=== PATIENT | male | born 1950 | race Caucasian/White ===

== ENCOUNTER 2022-07-28 09:13 | Emergency (ER) | payer MEDICARE, BC, SELFPAY ==
[2022-07-28 09:25] VITALS: BP 193/99; PULSE 120; RESP 20; TEMP 36.5; O2SAT 98; BMI 24.6
[2022-07-28 10:35] VITALS: BP 174/96; PULSE 86; RESP 18; O2SAT 96
[2022-07-28 10:41] LABS: Appearance Urine Clear (Clear); Bilirubin Urine Negative (Negative); Blood Urine 2+ (Negative); Color Urine Yellow (Yellow); Glucose Urine Negative (Negative); Ketones Urine Negative (Negative); Leukocyte Esterase Urine Negative (Negative); Nitrite Urine Negative (Negative); Protein Urine 1+ (Negative); Specific Gravity Urine 1.025 (1.000-1.030); Urobilinogen Urine 0.2 (0.2-1.0)
[2022-07-28] MEDS: TAMSULOSIN HCL 0.4 MG CAPSULE PO (10:45)
[2022-07-28 10:47] LABS: RBC Urine 25-50 (0-2); Squamous Epithelial Cell Urine Few (None-Few)
--- NOTE | 2022-07-28 11:13 | ED.NURSE ---
was instructed with catheter care. was given a leg bag and placed on his right leg. will get rx for flomax and start daily; aware that dose was given today.
--- NOTE | 2022-07-28 11:32 | ED_ITS ---
HPI - Male Genitourinary General Date Seen: 07/28/22 Chief complaint: Urogenital Problems, Male Stated complaint: unable to urinate Time Seen by Provider: 07/28/22 09:16 Source: patient Mode of arrival: ambulatory Limitations: no limitations History of Present Illness HPI Narrative: Patient is a 71-year-old gentleman who presents here for evaluation of not being able to urinate since approximately 3:00 a.m.. He usually gets up he says 4-5 times overnight. Never before had to have a catheter, denies any dysuria frequency fevers chills abdominal pain associated with this did not take any other medications, does not really have a primary care physician as on no chronic medications. Bladder scan is done any has for over 400 mL in his bladder. Related Data Previous Rx's Medication Instructions Recorded tamsulosin 0.4 mg capsule (Flomax) 0.4 mg PO DAILY #30 caps 07/28/22 Allergies Allergy/AdvReac Type Severity Reaction Status Date / Time No Known Drug Allergies Allergy Verified 07/28/22 09:25 Review of Systems Status of ROS: Reports: 10 or more systems reviewed and unremarkable except as noted in History and below [facility] Social History Smoking Status: Former smoker Do you use any of these nicotine containing products: None Second hand tobacco smoke exposure: No How often do you have a drink containing alcohol: 2-3 times a week How many standard drinks containing alcohol do you have on a typical day: 1 or 2 How often do you have six or more drinks on one occasion: Never AUDIT-C Alcohol total score: 3 Non-prescribed substance use: denies use service: No Exam Narrative: Exam Narrative: Patient is a very nice gentleman in no apparent distress seen in room 7, there is no palpable tenderness noted over his bladder, or abdomen. There is no tenderness noted over his back, bowel sounds are normal, greater than 400 mL in his bladder. Const: Vital Signs, click to edit/add: Vital Signs - 24 hr 07/28/22 09:25 07/28/22 10:35 Temperature 97.7 F Pulse Rate [Pulse Oximeter] 120 H 86 Respiratory Rate 20 18 Blood Pressure [Le ft Upper Arm] 193/99 H 174/96 H Pulse Oximetry 98 96 Oxygen Delivery Me thod Room Air Room Air Documenting provider has reviewed patient's vital signs: yes Course Vital Signs Vital signs: Initial Vital Signs Temperature 97.7 F 07/28/22 09:25 Temperature Source Temporal Artery Scan 07/28/22 09:25 Pulse Rate 120 H 07/28/22 09:25 Pulse Rhythm Regular 07/28/22 09:25 Respiratory Rate 20 07/28/22 09:25 Blood Pressure 193/99 H 07/28/22 09:25 Blood Pressure Mean 130 H 07/28/22 09:25 Blood Pressure Position Standing 07/28/22 09:25 Pulse Oximetry 98 07/28/22 09:25 Oxygen Delivery Method Room Air 07/28/22 09:25 Vital Signs Temperature 97.7 F 07/28/22 09:25 Pulse Rate 120 H 07/28/22 09:25 Respiratory Rate 20 07/28/22 09:25 Blood Pressure 193/99 H 07/28/22 09:25 Pulse Oximetry 98 07/28/22 09:25 Oxygen Delivery Method Room Air 07/28/22 09:25 Temperature 97.7 F 07/28/22 09:25 Pulse Rate 86 07/28/22 10:35 Respiratory Rate 18 07/28/22 10:35 Blood Pressure 174/96 H 07/28/22 10:35 Pulse Oximetry 96 07/28/22 10:35 Oxygen Delivery Method Room Air 07/28/22 10:35 MDM - Male Genitourinary MDM Narrative Medical decision making narrative: Patient is urinary retention likely from BPH I have a low suspicion this is secondary to prostatitis or some other cause. It can be from an enlarged prostate which can be caused generally by BPH but also could be caused by malignancy and should be seen in follow-up. Medical Records Attestation: I reviewed the patient's medical records. Lab Data Attestation: I reviewed the patient's lab results. Labs: Lab Results 07/28/22 Range/Units 10:30 Urine Color Yellow (Yellow) Urine Appearance Clear (Clear) Urine pH 7.0 (5.0-8.5) Ur Specific [place] 1.025 (1.000-1.030) Urine Protein 1+ A (Negative) Urine Glucose (UA) Negative (Negative) Urine Ketones Negative (Negative) Urine Blood 2+ A (Negative) Urine Nitrite Negative (Negative) Urine Bilirubin Negative (Negative) Urine Urobilinogen 0.2 (0.2-1.0) Ur Leukocyte Esterase Negative (Negative) Urine RBC 25-50 A (0-2) Urine WBC 2-5 (0-5) Ur Squamous Epith Cells Few (None-Few) Urine Bacteria None (None) Discharge Plan Discharge Clinical Impression: Elevated blood pressure reading, Acute retention of urine Patient Disposition: Home, Self-Care Condition: Stable Instructions: Urinary Retention in Men (ED), [place] Catheter Placement and Care (ED) Additional Instructions: Home rest I recommend follow-up in mid week with either 1 of the providers locally or Urology to get your catheter removed. Likely causes is your large prostate which causes the urinary retention, other issues need to be checked to make sure this isn't something more sinister such as cancer. Take the medication as directed this will help shrink your prostate over time and allow you not to get up as much overnight to pee . The other benefit of it is is tends to help the blood pressure which was elevated here. This is partially probably due to the fact that you had a lot a urine, but I would suspect that you do have some high blood pressure. Another good reason to follow-up with a provider. Prescriptions: New tamsulosin [Flomax] 0.4 mg capsule 0.4 mg PO DAILY Qty: 30 2RF Follow Up/Referrals: Julio Ocampo MD [Staff Physician] - Jose Manuel Machado MD [Staff Physician] - Provider,Not a Local [Primary Care Provider] - Stand Alone Forms: [employer] Info Instructions
== END 2022-07-28 11:10 | disposition home or self-care (01) ==
PROVIDERS: Emergency Provider Family Medicine
DX: R33.9 Retention of urine, unspecified (principal); R03.0 Elevated blood-pressure reading, without diagnosis of hypertension
CPT/HCPCS: 51798; 81001; 99283; 99284; A9270

== ENCOUNTER 2023-07-28 08:57 | Outpatient (CLI) | payer MEDICARE, BC, SELFPAY ==
--- OUTSIDE RECORDS SUMMARY | 2023-07-28 09:01 | XMS_ITS ---
Author Name Unknown Organization [facility] Address [address] [place] [address] Care Team Providers Care Toter Name Role Phone Unavailable Unavailable Unavailable Surgery Details Not on file Complications Check Surgery Details section. Procedure Estimated Blood Loss Check Surgery Details section. Procedure Findings Check Surgery Details section. Procedure Specimens Taken Check Surgery Details section.
--- OUTSIDE RECORDS SUMMARY | 2023-07-28 09:01 | XMS_ITS | Referral Summary ---
Author Name Unknown Organization [facility] Address [address] [place] [address] Care Team Providers Care Drupal Php Developer Name Role Phone Unavailable Primary Care Provider Unavailabl e Source Comments Patient records contain information from all sites at [facility]. For routine questions regarding patient records, call [phone] during business hours, M-F 8:00 AM - 5:00 PM Central Time. Record requests for emergency care only can be directed to [phone] at any time.[facility] Allergies No known active allergies Immunizations Name Administration Dates Next Due Td, (Adult) Unspecified 10/25/1994 Social History Tobacco Use Types Packs/Day Years Used Date Smoking Tobacco: Never Assessed Humiliation, Afraid, Rape, and Kick questionnair e Answer Date Recorded Within the last year, have y ou been afraid of your partner or ex-partner? No 08/09/2022 Within the last year, have y ou been humiliated or emotionally abused in other ways by your partner or ex-partner? No Within the last year, have y ou been kicked, hit, slapped, or otherwise physically hurt by your partner or ex-partner? No 08/09/2022 Within the last year, have y ou been raped or forced to have any kind of sexual activity by your partner or ex-partner? No 08/09/2022 Overall Financial Resource Strain (CARDIA) Answe r Date Recorded How hard is it for you to pa y for the very basics like food, housing, medical care, and heating? Not hard at all 08/09/2022 Exercise Vital Sign Answer Date Recorde d On average, how many days pe r week do you engage in moderate to strenuous exercise (like a brisk walk)? 7 days 08/09/2022 On average, how many minutes do you engage in exercise at this level? 30 min 08/09/2022 Hunger Vital Sign Answer Date Recorded Within the past 12 months, y ou worried that your food would run out before you got the money to buy more. Never true 08/10/19 Within the past 12 months, t he food you bought just didn't last and you didn't have money to get more. Never true 08/09/2022 PRAPARE - Transportation Answer Date Re corded In the past 12 months, has l ack of transportation kept you from medical appointments or from getting medications? No 07/16 In the past 12 months, has l ack of transportation kept you from meetings, work, or from getting things needed for daily living? No 08/09/2022 Nutrition Answer Date Recorded Nutrition: EVOO Fat Source Unknown 08/09 On average, how many serving s of fruits and vegetables do you eat per day (serving size is equal to 1 cup or approximately the size of a tennis ball)? 0-2 08/09/2022 Dental Answer Date Recorded Dental: Regular Dentist No 08/10/19 Employment Answer Date Recorded Employment status Employed and actively working without restrictions 08/09/2022 Housing Stability Answer Date Recorded What is your living situation today? I have a [facility] place to live 08/09/2022 Sex and Gender Information Value Date Recorded Sex Assigned at Not on file Gender Identity Not on file Sexual Orientation Not on file Plan of Treatment Not on file PEGG[place] Draper [id number]
--- OUTSIDE RECORDS SUMMARY | 2023-07-28 09:01 | XMS_ITS | Clinical Summary ---
Author Name Unknown Organization [facility] Address [place], [place] [address] Care Team Providers Care Clay Carman Name Role Phone Unknown, Doctor Primary Care Provider Unavailabl e Allergies No known active allergies Medications No known medications Immunizations Name Administration Dates Next Due COVID-19 vaccine (Aguilar-J&J) BENITO CASH COVID-19 vaccine ([employer] 30mcg/0.3mL) BENITO Day 02/26/2021 Social History Tobacco Use Types Packs/Day Years Used Date Smoking Tobacco: Never Smokeless Tobacco: Never Tobacco Cessation:Counseling Given: Yes Alcohol Use Standard Drinks/Week Comments Yes 0 (1 standard drink = 0.6 oz pur e alcohol) Social Connections Answer Date Recorded Frequency of Communication with Friends and Fami ly Not on file 03/17/2021 Financial Resource Strain Answer Date R ecorded Difficulty of Paying Living Expenses Not on file 03/17/2021 Difficulty of Paying Living Expenses Not on file 03/17/2021 Sex and Gender Information Value Date Recorded Sex Assigned at Not on file Gender Identity Not on file Sexual Orientation Not on file Obstetrics History Plan of Treatment Health Maintenance Due Date Last Done Comments Tdap 1960 Depression screening for age 12+ 1961 BMI (ht and wt on same day) for age 18+ 12/01/1967 Hepatitis C screening for age 18-79 12/01/1967 Tetanus booster 1969 Colonoscopy through age 75 1994 Lipids for age 45-75 1994 Zoster (shingles) series for age 50+ (1 of 2) 12/01/1999 Medicare Wellness for age 65+ 2014 Pneumococcal series for age 65+ (1 of 1 - PCV) 2014 COVID-19 vaccine series ( season) 2022 02/26/2021, 05/27/2020 Influenza for age 65+ 11/16/2023 Care Teams Clay Carman Relationship Specialty Start Date End Date Unknown, Doctor . PCP - General Emergency Medicine 02/02/14
--- OUTSIDE RECORDS SUMMARY | 2023-07-28 09:01 | XMS_ITS | Clinical Summary ---
Author Name Unknown Organization [facility] Address [address] [place] [address] Care Team Providers Care Slurry Blender Name Role Phone Unavailable Primary Care Provider Unavailabl e Source Comments Patient records contain information from all sites at [facility]. For routine questions regarding patient records, call [phone] during business hours, M-F 8:00 AM - 5:00 PM Central Time. Record requests for emergency care only can be directed to [phone] at any time.[facility] Allergies No known active allergies Immunizations Name [...] your living situation today? I have a [facility] place to live 08/09/2022 Sex and Gender Information Value Date Recorded Sex Assigned at Not on file Gender Identity Not on file Sexual Orientation Not on file Plan of Treatment Health Maintenance Due Date Last Done Comments CT Colonography 1949 Cologuard 1949 Colonoscopy 1949 Colorectal Cancer Screening 1949 FIT 1949 Fasting Glucose for Diabetes Screening 1949 Hepatitis C Screening 1949 Zoster Vaccines (1 of 2) 12/01/1999 Pneumococcal vaccine (65+ ye ars) (1 of 1 - PCV) 2014 COVID-19 Vaccine (3 - 2022- season) 2022, 05/27/2020 Influenza Vaccine (#1) 2022 Depression Screening (Annual PHQ-2) 03/17/2023 Fall Risk Screen (Annual) 03/17/2023 DTaP,Tdap,and Td Vaccines (2 - Td or Tdap) 09/09/2032 09/09/2022, 10/25/1994
== END 2023-07-28 08:58 | disposition home or self-care (01) ==
PROVIDERS: PCP Family Medicine; Visit Provider Family Medicine
DX: R97.20 Elevated prostate specific antigen [PSA] (principal); I10 Essential (primary) hypertension; Z13.220 Encounter for screening for lipoid disorders; Z12.5 Encounter for screening for malignant neoplasm of prostate
CPT/HCPCS: 80048; 80061; 84153

== ENCOUNTER 2023-08-26 07:54 | Outpatient (CLI) | payer MEDICARE, BC, SELFPAY ==
--- OUTSIDE RECORDS SUMMARY | 2023-08-26 08:00 | XMS_ITS | Clinical Summary ---
Author Organization [facility] Address [place], [place] [address] Care Team Providers Care Harbor Engineer Name Role Phone Unknown, Doctor Primary Care Provider Unavailabl e Allergies No known active allergies Medications No known medications Immunizations Name Administration Dates Next Due COVID-19 vaccine (Aguilar-J&J) BENITO CASH COVID-19 vaccine ([employer] 30mcg/0.3mL) BENITO Day 02/26/2021 Social History Tobacco [...] 1 - PCV) 2014 COVID-19 vaccine series (3 2022- season) 2022 02/26/2021, 05/27/2020 Influenza for age 65+ 11/16/2023 Care Teams Harbor Engineer Relationship Specialty Start Date End Date Unknown, Doctor . PCP - General Emergency Medicine 02/02/14
--- OUTSIDE RECORDS SUMMARY | 2023-08-26 08:00 | XMS_ITS ---
Author Organization [facility] Address [address] [place] [address] Care Team Providers Care Architectural Representative Name Role Phone Unavailable Unavailable Unavailable Surgery Details Not on file Complications Check Surgery Details section. Procedure Estimated Blood Loss Check Surgery Details section. Procedure Findings Check Surgery Details section. Procedure Specimens Taken Check Surgery Details section.
--- OUTSIDE RECORDS SUMMARY | 2023-08-26 08:00 | XMS_ITS | Clinical Summary ---
Author Organization [facility] Address [address] [place] [address] Care Team Providers Care Finishing Range Operator Name Role Phone Unavailable Primary Care Provider Unavailabl e Source Comments Patient records contain information from all sites at [facility]. For routine questions regarding patient records, call [phone] during business hours, M-F 8:00 AM - 5:00 PM Central Time. Record requests for emergency care only can be directed to [phone] at any time.[facility] Allergies No known active allergies Immunizations Name [...] your living situation today? I have a [facility] place to live 08/09/2022 Sex and [...]
--- OUTSIDE RECORDS SUMMARY | 2023-08-26 08:00 | XMS_ITS | Referral Summary ---
Author Organization [facility] Address [address] [place] [address] Care Team Providers Care Manager Unix Name Role Phone Unavailable Primary Care Provider Unavailabl e Source Comments Patient records contain information from all sites at [facility]. For routine questions regarding patient records, call [phone] during business hours, M-F 8:00 AM - 5:00 PM Central Time. Record requests for emergency care only can be directed to [phone] at any time.[facility] Allergies No known active allergies Immunizations Name [...] your living situation today? I have a [facility] place to live 08/09/2022 Sex and Gender Information Value Date Recorded Sex Assigned at Not on file Gender Identity Not on file Sexual Orientation Not on file Plan of Treatment Not on file
--- NOTE | 2023-08-26 09:27 | W.ANESCHARGE ---
Anesthesia Charges Start Date/Time Anesthesia Start Date: 08/26/23 Anesthesia Start Time: 08:47 Stop Date/Time Anesthesia Stop Date: 08/26/23 Anesthesia Stop Time: 09:27 Summary Extremes of Age - Over 70 or under 1: MDA
--- NOTE | 2023-08-26 09:31 | P.ANES_ITS ---
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
== END 2023-08-26 07:55 | disposition home or self-care (01) ==
LOC: OP CLINIC 07:56
PROVIDERS: PCP Family Medicine; Visit Provider Surgery
DX: Z12.11 Encounter for screening for malignant neoplasm of colon (principal); K63.5 Polyp of colon; K57.30 Diverticulosis of large intestine without perforation or abscess without bleeding; R19.5 Other fecal abnormalities; N40.0 Benign prostatic hyperplasia without lower urinary tract symptoms
CPT/HCPCS: 00811; 45385; 88305; 99100; J2704

== ENCOUNTER 2024-05-11 14:42 | Outpatient (CLI) | payer MEDICARE, BC, SELFPAY | END 2024-05-11 14:43 | disposition home or self-care (01) | PROVIDERS: PCP Family Medicine; Visit Provider Family Medicine | DX: I10 Essential (primary) hypertension (principal) | CPT/HCPCS: 80048; 85025 ==

== ENCOUNTER 2024-06-03 07:55 | Day surgery (SDC) | payer MEDICARE, BC, SELFPAY ==
[2024-06-03] VITALS (13 sets, daily range): BP systolic 140–191; BP diastolic 71–99; PULSE 95–110; RESP 10–18; TEMP 36.5–36.7; O2SAT 95–100; BMI 24.5
[2024-06-03] MEDS: LACTATED RINGERS 1000 ML 1,000 ML 100 ML IV (08:00)
[2024-06-03] MEDS: SODIUM CHLORIDE 0.9 % (FLUSH) 10 ML SYRINGE IVF (08:23)
--- NOTE | 2024-06-03 09:06 | W.PM.H&PU ---
History & Physical Update History & Physical Update H&P Reviewed and patient assessed: No changes noted
[2024-06-03] MEDS: CEFAZOLIN 2 GM INJ IVP (09:20)
[2024-06-03] MEDS: BUPIVACAINE 0.25% 30 ML INJECTION (10:15)
--- NOTE | 2024-06-03 10:25 | P.GSOP_ITS ---
Operative Note Date of procedure: 06/03/24 Pre-op diagnosis: Left inguinal hernia Post-op diagnosis: Same, indirect Type of Procedure: Laparoscopic left inguinal hernia repair with placement of mesh Indications: Patient is a 73-year-old male who presented to clinic with a symptomatic left inguinal hernia. Please see consultation note for full discussion regarding treatment options. Risks and benefits of operative intervention were discussed at length with the patient. Risks included but was not limited to: Bleeding, infection, risk of damage to surrounding structures, possible need for additional procedures, possible need to convert to an open operation and postoperative complications such as pneumonia, pulmonary emboli or AL. All questions and concerns were addressed with the patient agreeing to proceed. Procedure Description: After discussing the risks and benefits of the procedure, the patient signed informed consent.? The operative site was marked and the patient was brought to the operating room and placed on the operating table in supine position.? Care was taken to pad the patient's pressure points.?? The patient was then intubated by anesthesia.?? The operative site was then prepped and draped in the usual sterile fashion.? A time-out was then performed. A curvilinear incision was made below the umbilicus. Dissection was carried down to subcutaneous tissue until the anterior rectus fascia was encountered. This was incised off the midline. The rectus muscles were then retracted exposing the posterior fascia. A space maker port with a dissecting balloon was then introduced. The preperitoneal space was inflated under direct vision. The balloon was then removed and the preperitoneal space insufflated. A 10 mm 30 degree scope was then advanced and the area was surveyed for bleeding. Dissection began on the left side. Steve's ligament and the pubic bone was exposed medially. Following this dissection was carried out laterally. An indirect defect was noted. The sac was dissected free from the cord structures using a combination of sharp and blunt dissection. Once the sac was completely reduced, the cord structures were dissected circumfrentially and a piece of Parietex mesh for the appropriate side was placed into the abdomen. This was pos itioned around the cord structures. A Tacker was used to attach the mesh medially at Steve's ligament. Once this was completed the sac was placed on top of the mesh and the preperitoneal space desufflated under direct vision. The ports were removed. The fascia from the infraumbilical port was closed with 0 Vicryl. The skin incisions were closed with absorbable subcuticular suture. Sterile dressings were then applied. The scrotum was examined to ensure that both testicles were down. Instrument sponge and needle counts were correct at the end of the case. Findings: Left inguinal hernia, indirect. Anesthesia: GETA Surgeon: Kerrie Webb MD Estimated blood loss (mL): 5 Condition: stable Disposition: PACU
--- NOTE | 2024-06-03 10:35 | P.ANES_ITS ---
Anesthesia Charges Start Date/Time Anesthesia Start Date: 06/03/24 Anesthesia Start Time: 09:10 Stop Date/Time Anesthesia Stop Date: 06/03/24 Anesthesia Stop Time: 10:31 Summary Extremes of Age - Over 70 or under 1: SUPERVISOR ENGINE REPAIR Coding CPT Codes CPT Codes: ANESTH SURGERY OF ABDOMEN - 75048 ([id number]) P2 - PATIENT W/MILD SYST DISEASE, QX - SUPERVISOR ENGINE REPAIR SVC W/ MD MED DIRECTION, QK - ASSOCIATE PROFESSOR OF ART 2-4 CNCRNT ANES PROC Additional Codes: Summary - Extremes of Age - Over 70 or under 1: SUPERVISOR ENGINE REPAIR ([id number])
--- NOTE | 2024-06-03 10:35 | W.ANESCHARGE ---
Anesthesia Charges Start Date/Time Anesthesia Start Date: 06/03/24 Anesthesia Start Time: 09:10 Stop Date/Time Anesthesia Stop Date: 06/03/24 Anesthesia Stop Time: 10:31 Summary Extremes of Age - Over 70 or under 1: CARE TRANSITION MANAGER Coding CPT Codes CPT Codes: ANESTH SURGERY OF ABDOMEN - 06798 ([id number]) P2 - PATIENT W/MILD SYST DISEASE, QX - CARE TRANSITION MANAGER SVC W/ MD MED DIRECTION, QK - POOL INSTALLER 2-4 CNCRNT ANES PROC Additional Codes: Summary - Extremes of Age - Over 70 or under 1: CARE TRANSITION MANAGER ([id number])
--- NOTE | 2024-06-03 10:39 | P.ANES_ITS ---
Anesthesia Charges Start Date/Time Anesthesia Start Date: 06/03/24 Anesthesia Start Time: 09:10 Stop Date/Time Anesthesia Stop Date: 06/03/24 Anesthesia Stop Time: 10:31 Summary Extremes of Age - Over 70 or under 1: MDA Coding CPT Codes CPT Codes: ANESTH SURGERY OF ABDOMEN - 95159 ([id number]) QK - FOUNTAIN PEN NIBS INSPECTOR 2-4 CNCRNT ANES PROC, QX - PREMIUM NOTE INTEREST CALCULATOR CLERK SVC W/ MD MED DIRECTION, P2 - PATIENT W/MILD SYST DISEASE Additional Codes: Summary - Extremes of Age - Over 70 or under 1: MDA ([id number])
--- NOTE | 2024-06-03 10:39 | W.ANESCHARGE ---
Anesthesia Charges Start Date/Time Anesthesia Start Date: 06/03/24 Anesthesia Start Time: 09:10 Stop Date/Time Anesthesia Stop Date: 06/03/24 Anesthesia Stop Time: 10:31 Summary Extremes of Age - Over 70 or under 1: MDA Coding CPT Codes CPT Codes: ANESTH SURGERY OF ABDOMEN - 10563 ([id number]) QK - BAND LINING BANDER 2-4 CNCRNT ANES PROC, QX - SAP ANALYST SVC W/ MD MED DIRECTION, P2 - PATIENT W/MILD SYST DISEASE Additional Codes: Summary - Extremes of Age - Over 70 or under 1: MDA ([id number])
== END 2024-06-03 12:14 | disposition home or self-care (01) ==
PROVIDERS: PCP Family Medicine; Visit Provider Surgery
PROC: (CPT 49650; principal; 2024-06-03 09:15)
DX: K40.90 Unilateral inguinal hernia, without obstruction or gangrene, not specified as recurrent (principal)
CPT/HCPCS: 49650; 00860; 99100; C1781; J0330; J0665; J0690; J1100; J2371; J2405; J2704; J3010; J3490; J7120

== ENCOUNTER 2024-06-03 18:14 | Emergency (ER) | payer MEDICARE, BC, SELFPAY ==
--- OUTSIDE RECORDS SUMMARY | 2024-06-03 18:15 | XMS_ITS | Clinical Summary ---
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 Gender Identity Not on file Sexual Orientation Not on file Obstetrics History Plan of Treatment Health Maintenance Due Date Last Done Comments Tdap 1960 Depression screening for age 12+ 1961 BMI (ht and wt on same day) for age 18+ 12/01/1967 Hepatitis C screening for age 18-79 12/01/1967 Tetanus booster 1969 Colonoscopy through age 75 1994 Lipids for age 45-75 1994 Pneumococcal series for age 50+ (1 of 1 - PCV) 12/01/1999 Zoster (shingles) series for age 50+ (1 of 2) 12/01/1999 Medicare Wellness for age 65+ 2014 COVID-19 vaccine series (2023- season) 2023 02/26/2021, 05/27/2020 Influenza Vaccine (#1) 2023 RSV vaccine for adults or pr egnancy (1 - 1-dose 75+ series) [id number] [place] [id number] [address] [place] [place] ONLY Care Teams Crop Ranch Hand Relationship Specialty Start Date End Date Unknown, Doctor . PCP - General Emergency Medicine 02/02/14
--- OUTSIDE RECORDS SUMMARY | 2024-06-03 18:16 | XMS_ITS | Clinical Summary ---
Author Organization [facility] Address [address] [place] [address] Care Team Providers Care Refining Machine Operator Name Role Phone Unavailable Primary Care Provider Unavailabl e Source Comments Patient records contain information from all sites at [facility]. For routine questions regarding patient records, call [phone] during business hours, M-F 8:00 AM - 5:00 PM Central Time. Record requests for emergency care only can be directed to [phone] at any time.[facility] Allergies No known active allergies Immunizations Immunization Administration Dates Next Due Td, (Adult) Unspecified [...] your living situation today? 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 Gender Identity Not on file Sexual Orientation Not on file Plan of Treatment Health Maintenance Due Date Last Done Comments CT Colonography 1949 Cologuard 1950 Colonoscopy 1950 Colorectal Cancer Screening 1950 FIT 1950 Fasting Glucose for Diabetes Screening 1950 Hepatitis B Screening 1950 Hepatitis C Screening 1950 Pneumococcal vaccine (50+ years) (1 of 1 - PCV) 12/01/1999 Zoster Vaccines (1 of 2) 12/01/1999 COVID-19 Vaccine (3 - 2023-2 5 season) 2023 02/26/2021, 05/27/2020 Influenza Vaccine (#1) 2023 Depression Screening (Annual PHQ-2) 03/17/2024 Fall Risk Screen (Annual) 03/17/2024 DTaP,Tdap,and Td Vaccines (2 - Td or Tdap) 09/09/2032 09/09/2022, 10/25/1994 IPV Vaccines Aged Out No longer eligi ble based on patient's age to complete this topic Insurance MEDICARE [facility]
[2024-06-03 18:20] VITALS: BP 190/102; PULSE 125; RESP 18; TEMP 37.1; O2SAT 97; BMI 24.6
--- OUTSIDE RECORDS SUMMARY | 2024-06-03 19:11 | XMS_ITS | Clinical Summary ---
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 PCP - General Emergency Medicine 02/02/14
--- OUTSIDE RECORDS SUMMARY | 2024-06-03 19:11 | XMS_ITS | Clinical Summary ---
Author Organization [facility] Address [address] [place] [address] Care Team Providers Care Clinical Specialist Vascular Name Role Phone Unavailable Primary Care Provider Unavailabl e Source Comments Patient records contain information from all sites at [facility]. For routine questions regarding patient records, call [phone] during business hours, M-F 8:00 AM - 5:00 PM Central Time. Record requests for emergency care only can be directed to [phone] at any time.[facility] Allergies No known active allergies Immunizations Immunization [...] your living situation today? 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
--- NOTE | 2024-06-03 19:19 | ED_ITS ---
HPI - Male Genitourinary General Date Seen: 06/03/24 Chief complaint: Urogenital Problems, Male Stated complaint: Surgery this am, cannot urinate Time Seen by Provider: 06/03/24 18:36 Source: patient and family Mode of arrival: ambulatory Limitations: no limitations History of Present Illness HPI Narrative: Patient is a very nice 69 for old gentleman who underwent laparoscopic inguinal surgery today with Dr. Webb, he was discharged but has been unable to pee after he left. Does admit that he has a bit of BPH, has had no never a problem with pain able to pee, the presents here to the emergency room. No other complaints. Associated symptoms: Reports denies other symptoms Related Data Previous Rx's ?Medication ?Instructions ?Recorded tamsulosin 0.4 mg capsule (Flomax) 0.4 mg PO QHS #90 caps 07/28/23 lisinopril 20 mg tablet 20 mg PO QDAY #90 tabs 05/11/24 hydrocodone 5 mg-acetaminophen 325 1 tab PO Q6H PRN pain #15 tabs 06/03/24 mg tablet sennosides 8.6 mg capsule (senna) 8.6 mg PO DAILY PRN constipation 06/03/24 #90 caps Allergies Allergy/AdvReac Type Severity Reaction Status Date / Time No Known Drug Allergies Allergy Verified 06/03/24 18:24 Review of Systems Status of ROS: Reports: 10 or more systems reviewed and unremarkable except as noted in History and below PFSH PFS Medical History BPH (benign prostatic hyperplasia) ?N40.0 - Benign prostatic hyperplasia without lower urinary tract symptoms (ICD-10) Elevated PSA ?R97.20 - Elevated prostate specific antigen [PSA] (ICD-10) Primary hypertension ?I10 - Essential (primary) hypertension (ICD-10) Social History What is your current living situation?: I presently have a place to live Problems where you live: pests, such as bugs, ants, or mice In past 12 months, lack of transportation kept you from medical appts, meetings, work, or getting things needed for daily living: no In the past 12 mos, have been you worried that your food would run out before you had money to buy more?: never true In the past 12 mos, the food you bought just didn't last and you didn't have money to buy more?: never true Smoking Status: Former smoker Do you use any of these nicotine containing products: None Second hand tobacco smoke exposure: No How often do you have a drink containing alcohol: 2-3 times a week How many standard drinks containing alcohol do you have on a typical day: 1 or 2 How often do you have six or more drinks on one occasion: Never AUDIT-C Alcohol total score: 3 Non-prescribed substance use: denies use Caffeine: Yes How often does anyone, including family, friends and others, physically hurt you : never How often does anyone, including family, friends and others, insult or talk down to you: never How often does anyone, including family, friends and others, threaten you with harm: never How often does anyone, including family, friends and others, scream or curse at you: never service: No Health Related Social Needs: Inadequate housing (Z59.1) Exam Narrative: Exam Narrative: Patient is in no apparent distress, I examine his abdomen which shows the portals of entry midline for his laparoscopic inguinal procedure, the percusses out of large bladder. Unfortunately because of bandages my nurse had a hard time with getting point of care ultrasound of his bladder contents, which is likely greater than 200 mL, he has normal male genitalia noted. Const: Vital Signs, click to edit/add: Vital Signs - 24 hr 06/03/24 18:20 Temperature 98.7 F Pulse Rate [Right Pulse Oximeter] 125 H Respiratory Rate 18 Blood Pressure [Ri ght Upper Arm] 190/102 H Pulse Oximetry 97 Oxygen Delivery Me thod Room Air Course Course ED Course: nurse was able the put the catheter in the patient, drained out approximately 700 mL of clear urine, he felt a lot better, at this point we will discharge him home with follow-up with his primary care physician for catheter removal or if he is comfortable with this he can remove it himself on Friday. This likely has to do with his postoperative state. Vital Signs Vital signs: Initial Vital Signs Temperature 98.7 F 06/03/24 18:20 Temperature Source Temporal Artery Scan 06/03/24 18:20 Pulse Rate 125 H 06/03/24 18:20 Pulse Rhythm Regular 06/03/24 18:20 Pulse Strength 3+ Normal 06/03/24 18:20 Respiratory Rate 18 06/03/24 18:20 Blood Pressure 190/102 H 06/03/24 18:20 Blood Pressure Mean 131 H 06/03/24 18:20 Blood Pressure Position Sitting 06/03/24 18:20 Pulse Oximetry 97 06/03/24 18:20 Oxygen Delivery Method Room Air 06/03/24 18:20 Vital Signs Temperature 98.7 F 06/03/24 18:20 Pulse Rate 125 H 06/03/24 18:20 Respiratory Rate 18 06/03/24 18:20 Blood Pressure 190/102 H 06/03/24 18:20 Pulse Oximetry 97 06/03/24 18:20 Oxygen Delivery Method Room Air 06/03/24 18:20 Temperature 98.7 F 06/03/24 18:20 Pulse Rate 125 H 06/03/24 18:20 Respiratory Rate 18 06/03/24 18:20 Blood Pressure 190/102 H 06/03/24 18:20 Pulse Oximetry 97 06/03/24 18:20 Oxygen Delivery Method Room Air 06/03/24 18:20 MDM - Male Genitourinary MDM Narrative Medical decision making narrative: We will use some Uro jet, and we will insert a Arciniega catheter, very common after surgery to have something like this go on. Discharge Plan Discharge Clinical Impression: Acute urinary retention, Post-operative state Patient Disposition: Home w/ Parent or Adult Condition: Stable Instructions: Urinary Retention in Men (ED), Arciniega Catheter Placement and Care (ED), Arciniega Catheter Removal (DC) Additional Instructions: I suggest leaving this in over the course of tomorrow Friday, consideration of following up on Friday with Dr. Machado for removal. Return back here if it becomes plugged bleeding, increasing pain fevers chills or other issues. Prescriptions: No Action tamsulosin [Flomax] 0.4 mg capsule 0.4 mg PO QHS Qty: 90 3RF lisinopril 20 mg tablet 20 mg PO QDAY Qty: 90 3RF hydrocodone-acetaminophen 5-325 mg tablet 1 tab PO Q6H PRN (Reason: pain) Qty: 15 0RF senna 8.6 mg capsule 8.6 mg PO DAILY PRN (Reason: constipation) Qty: 90 0RF Follow Up/Referrals: Jose Manuel Machado MD [Primary Care Provider] - Stand Alone Forms: [employer] Info Instructions
[2024-06-03 20:13] VITALS: BP 159/88; PULSE 76; RESP 16; O2SAT 98
== END 2024-06-03 20:14 | disposition home or self-care (01) ==
PROVIDERS: Emergency Provider Family Medicine; PCP Family Medicine
DX: R33.9 Retention of urine, unspecified (principal)
CPT/HCPCS: 51702; 99283

== ENCOUNTER 2025-01-11 15:19 | Outpatient (CLI) | payer MEDICARE, BC, SELFPAY | END 2025-01-11 15:20 | disposition home or self-care (01) | PROVIDERS: PCP Family Medicine; Visit Provider Family Medicine | DX: I10 Essential (primary) hypertension (principal); R97.20 Elevated prostate specific antigen [PSA] | CPT/HCPCS: 80048; 80061; 84153 ==